=== PATIENT | male | born 1960 | race Caucasian/White ===

== ENCOUNTER → 2021-08-21 | Outpatient (CLI) | payer BC ==
--- NOTE | 2021-08-21 10:26 | Diagnostic Imaging Report ---
CLINICAL INDICATION: Patient with gait and balance problems. Patient has lightheadedness. Patient fell yesterday but is unable to determine if he hit head. EXAM: Axial CT scan of the brain performed without IV contrast with sagittal and coronal reformatted images. Auto Exposure Controls were utilized during the CT exam to meet ALARA standards for radiation dose reduction. COMPARISON: None. FINDINGS: There is no evidence of acute cerebral infarct, intracranial hemorrhage, or gross mass effect. The brain parenchymal volume appears appropriate for patient's age. There are multiple focal, patchy, and confluent areas of low-attenuation white matter changes involving both cerebral hemispheres, likely representing chronic small vessel ischemic disease and leukoaraiosis. There is normal lewis-white matter distinction. There is no significant midline shift or herniation. There is no evidence of hydrocephalus. The basal cisterns are unremarkable. The skull, extracranial soft tissue, and orbits are unremarkable. The paranasal sinuses are unremarkable. Temporal bones show no significant abnormality. IMPRESSION: 1: There is no evidence of an acute intracranial process. There is no skull fracture. 2: There is brain parenchymal volume loss, chronic small vessel ischemic disease, and leukoaraiosis. Dictated by: Dictated on workstation # [id number]
== END ==
LOC: RAD FS 09:56
PROVIDERS: ATTEND Nurse Practitioner Family
DX: I67.81 Acute cerebrovascular insufficiency (principal); I67.82 Cerebral ischemia
CPT/HCPCS: 70450

== ENCOUNTER → 2022-05-07 | Outpatient (CLI) | payer BC ==
--- NOTE | 2022-05-07 16:37 | Diagnostic Imaging Report ---
EXAMINATION: Left ankle 3 views HISTORY: Left ankle pain COMPARISON: None available. FINDINGS: There is no acute fracture, dislocation, or destructive osseous process. Joint spaces are normal. Soft tissues are normal. IMPRESSION: No acute osseous abnormality of the left ankle. Dictated by: Dictated on workstation # [id number]
--- NOTE | 2022-05-07 16:40 | Diagnostic Imaging Report ---
EXAMINATION: Left foot 3 views HISTORY: Foot pain COMPARISON: None available. FINDINGS: Alignment is normal. No fracture is seen. Joint spaces are normal. IMPRESSION: 1. No fracture. Dictated by: Dictated on workstation # [id number]
== END ==
LOC: RAD FS 13:33
PROVIDERS: ATTEND Student in an Organized Health Care Education/Training Program
DX: S99.912A Unspecified injury of left ankle, initial encounter (principal); X58.XXXA Exposure to other specified factors, initial encounter
CPT/HCPCS: 73610; 73630